=== PATIENT | male | born 1950 | race Caucasian/White ===

== ENCOUNTER 2017-10-15 05:20 | Inpatient (IN) ==
[2017-10-15] MEDS ORDERED: CEFAZOLIN 1 G INJECTION IVP ONE (05:48)
[2017-10-15 05:51] VITALS: BMI 31.4
[2017-10-15] MEDS ORDERED: METOCLOPRAMIDE 10mg/2ml INJECTION IVP ONE (06:00)
[2017-10-15] MEDS ORDERED: ACETAMINOPHEN 500 MG TABLET PO ONE (06:00)
[2017-10-15] MEDS ORDERED: DEXAMETHASONE 4 MG/ML INJECTION IVP ONE (06:00)
[2017-10-15] MEDS ORDERED: ONDANSETRON 4 MG/2 ML INJECTION IVP ONE (06:00)
[2017-10-15] MEDS ORDERED: TRANEXAMIC ACID 1,000 MG in NS 100 ML IV ONE ×2 (06:00→07:00)
[2017-10-15] MEDS ORDERED: FAMOTIDINE PB 20 MG/50 ML BAG IV ONE (06:00)
[2017-10-15] MEDS ORDERED: LIDOCAINE 1% (10mg/ml) 2mL INJ PF SDV ID ONE (06:00)
[2017-10-15] MEDS ORDERED: MELOXICAM 15 MG TABLET PO ONE (06:00)
[2017-10-15] MEDS: LR 1,000 ML IV SCH ×2 (06:16→08:18)
[2017-10-15] MEDS ORDERED: NOZIN NASAL SWAB NAS ONE ×2 (06:55→10:22)
[2017-10-15] MEDS ORDERED: VANCOMYCIN 1,000 MG INJECTION ONE (06:57)
[2017-10-15] MEDS ORDERED: MIDAZOLAM 2mg/2ml INJECTION ONE (07:05)
[2017-10-15] MEDS ORDERED: FentaNYL 100 MCG/2 ML INJECTION ONE (07:13)
[2017-10-15] MEDS ORDERED: BUPIVACAINE 0.25% (2.5mg/ml) PF 30ml INJECTION ONE (07:27)
[2017-10-15] MEDS ORDERED: EPINEPHrine PF 0.25 MG, BUPIVACAINE 0.25% PF 30 ML, MORPHINE SULFATE 15 MG, KETOROLAC I... OPSITE ONE (08:00)
[2017-10-15] MEDS ORDERED: KETAMINE 500 MG/10 ML INJECTION ONE (08:09)
[2017-10-15] MEDS ORDERED: VANCOMYCIN 1,000 MG INJECTION IAR ONE (08:34)
--- NOTE | 2017-10-15 09:22 | Operative Note ---
- Procedure Preoperative Diagnosis: Right hip primary degenerative joint disease Postoperative Diagnosis: Same as preoperative diagnosis. Surgeon: Boston Gordon MD Diamond Sizer And Sorter: Wade Stuart Complications: None. Anesthesia: Spinal. Estimated Blood Loss: See Anesthesia Record. Fluids: Please see Anesthesia Record. Description of Procedure: Mr Huggins and his right hip were identified and marked in the preoperative holding area. He was brought back to the operating suite and spinal anesthetic was administered. He was then placed in a lateral decubitus position with his right hip up. The right lower extremity was prepped and draped in my normal sterile fashion. Timeout was performed. The [employer] robotic arm was used to assist with the surgery. A pelvic array was placed into the iliac crest through three 1 cm incisions. A direct superior approach was utilized. An approximately 15 cm incision was made in the skin and dissection carried down to the muscle fascia which was then split in line with skin incision. A checkpoint was placed in the greater trochanter. The short external rotators were identified and tagged and detached. A capsulotomy was performed and the hip dislocated. A femoral neck osteotomy was performed at the pre-templated level measuring down from the femoral head. The head was removed and acetabulum exposed. Labrum was removed. It'll large inferior osteophyte. The acetabulum was then registered with the robot. The robotic arm was then used to ream with a 55 reamer. The large inferior ossified was then removed. The robot then was again used to place a 56 Trident cup in 40 of tilt and 22 of anteversion. A liner was then placed. The proximal femur was exposed and prepared with a cookie cutter followed by reaming and broaching to a size 5. We trialed with a 0 head. After thorough irrigation a final Accolade 2 size 5 stem with 127 neck was placed. Leg length and offset were checked with the robot and were good. According to the robot he was 1 mm longer than the opposite hip. A final ceramic standard head was placed and the hip reduced. Betadine solution was used to irrigate throughout the case. It was followed by normal saline irrigation. Joint cocktail was injected throughout soft tissue. The capsulotomy was repaired with Ethibond. Short external rotators were also repaired with Ethibond. 1 g of vancomycin powder was placed into the wound. The muscle fascia was then repaired with #1 Vicryl. I then left my blood donor unit assistant to close the subcutaneous tissue with 2-0 Vicryl followed by running 4-0 Monocryl skin followed by Dermabond and a sterile dressing. The patient with any placed back into supine position and taken to recovery room in the care of anesthesia.
[2017-10-15] MEDS ORDERED: PHENYLEPHRINE INJ 10 MG/ML VIAL IV ONE (09:28)
--- NOTE | 2017-10-15 09:56 | Anesthesia Postoperative Note ---
- Date and Time Date: 10/15/17 Time: 09:56 - Status Patient Participated in Evaluation: Patient Participated in Person Vital Signs: Temperature 97.5 F 10/15/17 09:40 Pulse Rate 72 10/15/17 09:50 Respiratory Rate 15 10/15/17 09:50 Blood Pressure 109/67 10/15/17 09:50 Pulse Oximetry 95 10/15/17 09:50 Respiratory Function: Airway Patent, Regular Respirations Cardiovascular Function: Regular Pulse EKG: Sinus Rhythm Pain Intensity: 0 (spinal intact) Hydration: IV Infusing Complications During Recover: None Apparent - Follow-Up Instructions Instructions: Per Surgeon
--- NOTE | 2017-10-15 09:57 | Anesthesia Preoperative Report ---
Anesthesia Preoperative Record - Date and Time Date: 10/15/17 Preoperative Diagnosis: RT RIANNA M16.11 NPO Since Date: 10/14/17 NPO Since Time: 21:00 Allergies/Adverse Reactions: Allergies Allergy/AdvReac Type Severity Reaction Status Date / Time Penicillins Allergy Unknown Verified 10/15/17 06:59 - Vital Signs Vital Signs: Temperature 98.0 F 10/15/17 05:40 Pulse Rate 88 10/15/17 05:40 Respiratory Rate 18 10/15/17 05:40 Blood Pressure 135/91 H 10/15/17 05:40 Pulse Oximetry 95 10/15/17 05:40 Height and Weight: Height 1.78 m Weight 99.5 kg Body Mass Index 31.4 - Medications Inpatient Medications: Current Medications Tranexamic Acid 1,000 mg/ (Sodium Chloride) 110 mls @ 660 mls/hr IV INTRAOP ONE Stop: 10/15/17 07:09 Epinephrine HCl 0.25 mg/Bupivacaine HCl 30 ml/Morphine Sulfate 15 mg/Ketorolac Tromethamine 60 mg/Sodium Chloride 65.25 mls @ 0 mls/hr OPSITE INTRAOP ONE; Per Protocol PRN Reason: Protocol Stop: 10/15/17 08:01 Lactated Ringer's (Lactated Ringers) 1,000 mls @ 50 mls/hr IV .Q20H TOM Last Admin: 10/15/17 06:16 Dose: 50 mls/hr Sodium Chloride (Iv Flush) 10 - 80 ml IV PRN PRN PRN Reason: Flushing Home Medications: Home Medications Medication Instructions Recorded Confirmed Type Prilosec (Omeprazole) 20 mg 20 mg PO .QD cap 05/15/17 10/15/17 History capsule,delayed release aspirin 81 mg tablet,delayed 81 mg PO DAILY tab 05/15/17 10/07/17 History release kvcdsoqd-esg-gqxsv acid 0.4 1 tab PO QAM 05/15/17 10/15/17 History mg-lycopene 300 mcg-lutein 250 mcg tablet Acetaminophen [Tylenol] 2 tab PO BID 10/07/17 10/15/17 History Is Patient on Beta Yris?: No - Medical History Respiratory: Reports: Asthma (as a child-exercise induced) DENIES: Bronchitis, Chronic Obstructive Pulmonary Disease (COPD), Dyspnea, Orthopnea, Pulmonary Embolism, Pneumonia, Upper Respiratory Infection, Pulmonary Edema, Sleep Apnea, Tuberculosis, Other Cardiovascular: Reports: Heart Murmur (grade 2), Hypertension, High Cholesterol DENIES: Abnormal EKG, Angina, Arrhythmia, Congestive Heart Failure, Coronary Artery Disease, Hypotension, Myocardial Infarction, Rheumatic Fever, Valvular Heart Disease, Other Gastrointestional: Reports: Gastroesophageal Reflux Disease (controlled), Other (umblical hernia) DENIES: Obstructive Bowel, Hepatitis, Cirrhosis, Nausea or Vomiting Present, Gastrointestinal Bleeding, Hiatal Hernia, Ulcer, Morbid Obesity Neuro/Musculoskeletal: Reports: HX.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; lt knee), Other (numbness on lt side of rt foot) Denies: Back Problems, Cerebrovascular Accident, Depression, Headaches, Loss of Consciousness, Muscle Weakness, Neuromuscular Disorder, Paralysis, Paresthesia, Syncope, Seizures Renal/Endocrine: Reports: Weight Loss DENIES: Diabetes Mellitus Type 1, Diabetes Mellitus Type 2, Renal Failure, Dialysis, Thyroid Disease, Weight Gain, Other - Surgical History HEENT Surgeries: Reports: Tonsillectomy, Other (wears glasses) GI Surgery/Treatments: Reports: Colonoscopy (polyp) Reproductive Surgery/Treatment: Reports: Vasectomy Anesthesia Reactions: None Hx Family Anesthesia Reaction: No History of Motion Sickness: No - Social History Smoking Status: Former smoker Hx Chewing Tobacco Use: No Second Hand Exposure: Yes Substance Use Type: does not use Alcohol Intake: never Alcohol Intake Frequency: does not drink - Pertinent Findings Laboratory: CBC and BMP 10/15/17 05:55 BMP 10/15/17 05:55 Sodium 145 H Potassium 3.4 L Chloride 103 Carbon Dioxide 30 BUN 20.0 Creatinine 0.9 Glucose 106 Calcium 9.6 EKG: Sinus Rhythm - Physical Exam Respiratory Exam: Present: lungs clear Cardiovascular Exam: Present: systolic murmur - Airway Assessment Mallampati Score: I TMD: 2 Fingerbreadths Neck Extension: good Overall Assessment: no airway concerns - ASA ASA Score: 2 - Plan Anesthesia: Neuroaxial Regional/Trunk Block: Spinal - Discussion Discussion: Discussed risks/options/alternatives of anesthesia and questions answered. Patient consents. Nursing pain assessment noted. Attestation Statement: Prior to the delivery of any anesthetic medication, I examined the patient, developed the plan, obtained the patient's consent and discussed the risk and benefits of the procedure with the patient/guardian. - Additional Information Seen by Anesthesia: Yes
[2017-10-15] MEDS ORDERED: DiphenhydrAMINE 25 MG CAPSULE PO PRN (10:22)
[2017-10-15] MEDS ORDERED: Oxycodone *IR* 5 MG TABLET PO PRN (10:22)
[2017-10-15] MEDS ORDERED: DiphenhydrAMINE 50 MG/ML INJECTION IVP PRN (10:22)
[2017-10-15] MEDS ORDERED: ONDANSETRON 4 MG/2 ML INJECTION IVP PRN (10:22)
[2017-10-15] MEDS ORDERED: LORazepam 1 MG TABLET PO PRN (10:22)
[2017-10-15] MEDS ORDERED: NAPROXEN 220 MG TABLET PO PRN (10:22)
[2017-10-15] MEDS: NS 1,000 ML IV SCH (10:27)
--- NOTE | 2017-10-15 10:48 | XRay Report ---
Indication: postoperative image PROCEDURE: XR pelvis w/ 1 view RT hip: Encounter: Initial Comparison: None Findings: Postoperative changes of right total hip replacement are seen. There is expected postoperative subcutaneous gas. No evidence of hardware failure or acute fracture. No retained radiopaque surgical instruments or sponges seen. Impression: New right total hip prosthesis without evidence of immediate complication. .
[2017-10-15] MEDS ORDERED: SALINE FLUSH 10ml SYRINGE IV PRN (12:32)
[2017-10-15] MEDS: NOZIN NASAL SWAB NAS SCH ×3 (12:59→21:02)
[2017-10-15] MEDS: ACETAMINOPHEN 325 MG TABLET PO SCH ×3 (13:00→20:54)
[2017-10-15] MEDS: CEFAZOLIN 2 G in NS 100 ML IV SCH ×2 (15:29→22:55)
[2017-10-15] MEDS: DEXAMETHASONE 20 MG/5 ML INJECTION IVP SCH ×2 (15:30→22:56)
[2017-10-15] MEDS: ASPIRIN *EC* 81 MG TABLET PO SCH (20:52)
[2017-10-15] MEDS: DOCUSATE SODIUM 100 MG CAPSULE PO SCH (20:54)
[2017-10-15] MEDS ORDERED: SENNOSIDES 8.6 MG TABLET PO SCH (21:00)
[2017-10-16] MEDS: NS 1,000 ML IV SCH (01:07)
[2017-10-16] MEDS: NOZIN NASAL SWAB NAS SCH (05:44)
[2017-10-16] MEDS ORDERED: OMEPRAZOLE 20 MG CAPSULE PO SCH (06:30)
--- NOTE | 2017-10-16 08:09 | Orthopedic Progress Note ---
Date: Date: 10/16/17 Time: 804 Subjective/Severity of Illness: Domenic is up with OT getting dressed. He has been mobile with good tolerance. Pain levels are a "0" at this time. He has only taken one pain pill so far. Denies feeling SOA or having a cough. O2 sats decreased into the upper 80's last night. Discussed getting a sleep study with his PCP after discharge. Pt has no concerns or complaints at this time. Orthopedic Objective PO Vital signs: Temperature 96.9 F 10/16/17 04:00 Pulse Rate 76 10/16/17 04:00 Respiratory Rate 16 10/16/17 04:00 Blood Pressure 114/73 10/16/17 04:00 Pulse Oximetry 97 10/16/17 04:00 Height and Weight: Height 5 ft 10 in Weight 219 lb 5.759 oz Body Mass Index 31.4 - Constitutional General Appearance: Present: alert, cooperative, no acute distress - Respiratory Exam Present: non-labored - Surgical Site Incision: Mepilex dressing intact, dressing intact, no drainage - Neurological Exam Present: no deficits - Psychiatric Exam Present: alert, normal affect - Labs Result Diagrams: 10/16/17 03:59 10/16/17 03:59 Abnormal lab results 10/16/17 10/16/17 Range/Units 03:59 03:59 Hgb 12.3 L (13.5-17.5) GM/DL Hct 37.2 L (41-53) % BUN 25.0 H (9-20) MG/DL Glucose 153 H (75-110) MG/DL H & H 10/16/17 Range/Units 03:59 Hgb 12.3 L (13.5-17.5) GM/DL Hct 37.2 L (41-53) % Orthopedic Assessment and Plan (1) Primary osteoarthritis of right hip Status: Acute Assessment and Plan: Current anti-coagulation protocol for VTE prophylaxis. SCD's for added coverage. Discussed getting sleep study as an outpatient due to drop in sats overnight. PT/OT services to improve independent function. Discharge Planning per Case Management. - Anticoagulation Therapy Anticoagulation: ASA 81 mg PO BID x6 weeks Hospital Course Summary Disclaimer: The visit summary below is not to be considered part of the above Progress Note.
[2017-10-16 08:43] VITALS: TEMP 98.8; O2SAT 96
[2017-10-16] MEDS ORDERED: ALLOPURINOL 100 MG TABLET PO SCH (09:00)
[2017-10-16] MEDS ORDERED: POLYETHYL GLYCOL 3350 17gm PACKET PO SCH (09:00)
[2017-10-16] MEDS ORDERED: SIMVASTATIN 80 MG PO SCH (09:00)
[2017-10-16] MEDS ORDERED: SIMVASTATIN 40 MG TABLET PO SCH (09:00)
[2017-10-16] MEDS ORDERED: LISINOPRIL/HCTZ 20/25 MG TABLET PO SCH (09:00)
[2017-10-16] MEDS ORDERED: INFLUENZA VAC High Dose 2017-18 (Fluzone HD*) (>=65yo) 0.5ml IM ONE (09:00)
[2017-10-16] MEDS: ASPIRIN *EC* 81 MG TABLET PO SCH (09:27)
[2017-10-16] MEDS: DOCUSATE SODIUM 100 MG CAPSULE PO SCH (09:28)
[2017-10-16] MEDS: ACETAMINOPHEN 325 MG TABLET PO SCH (09:28)
[2017-10-16] MEDS ORDERED: INFLUENZA VAC. INJ. ADMIN CHARGE INJ ONE (09:30)
[2017-10-16] MEDS ORDERED: SENNOSIDES 8.6 MG TABLET PO PRN (09:32)
[2017-10-16 12:35] VITALS: BP 113/71; PULSE 79; RESP 18
--- NOTE | 2017-10-16 12:46 | Discharge Summary ---
Orthopedic Discharge Info Date of admission: 10/15/17 05:20 Primary care physician: Jeffrey Mcarthur DO Attending Physician: Hernandez Gordon MD Consults: 10/15/17 05:31 Consult to Anesthesiology [CONS] Routine Reason For Exam: Preoperative Assessment 10/15/17 10:22 Case Management Consult [CONS] Routine Reason For Exam: Discharge Planning DME-Walker [CONS] Routine Height: 5 ft 10 in Weight: 219 lb 5.759 oz Total Joint Outpatient Therapy [CONS] Routine Comment: Remove dressing in 2 weeks 10/16/17 05:15 Case Management Consult [CONS] Routine Reason For Exam: noc ox study - Discharge Diagnosis (1) Primary osteoarthritis of right hip Status: Acute - Procedures Procedures: Right RIANNA - Laboratory Result Diagrams: 10/16/17 03:59 10/16/17 03:59 Laboratory: Abnormal lab results 10/16/17 10/16/17 Range/Units 03:59 03:59 Hgb 12.3 L (13.5-17.5) GM/DL Hct 37.2 L (41-53) % BUN 25.0 H (9-20) MG/DL Glucose 153 H (75-110) MG/DL H & H 10/16/17 Range/Units 03:59 Hgb 12.3 L (13.5-17.5) GM/DL Hct 37.2 L (41-53) % Orthopedic Discharge HPI - HPI Comments This patient was admitted for elective surgical tx of end stage degenerative joint disease that failed to respond to conservative treatment. Further details of this is found in the admission H&P. Orthopedic Hospital Course Hospital course: 10/16/17 12:43 After appropriate preoperative clearance and signing of operative consent, the patient was given IV antibiotics, according to orthopedic protocol. The patient was taken to the operating room and underwent elective joint arthroplasty. Following surgery, antibiotics were discontinued less than 24 hours according to joint protocol. Appropriate anticoagulants were initiated and SCDs added for DVT prevention. The dressing was clean, dry, and intact. Pain control was obtained via multimodal approach. Bowel motivation addressed with scheduled and PRN medications. Early mobilization was initiated through PT services. Discharge arrangements made by a collaborative effort between the patient and Case Management. Follow-up is scheduled in 2-3 weeks. Discharge instructions given by orthopedic providers and nursing staff at discharge. Discharge condition was good. Ongoing care required?: No Discharge Plan - Med Rec/Dispo Referrals/Follow Up: Hernandez Gordon MD [Physician] - 11/06/17 2:45 pm Azeb Instructions: [facility] [place] Ortho Postop Instructions Additional Instructions: [facility] ON 10/18/2017 AT 9:40AM FOR PHYSICAL THERAPY EVAL. PHONE [phone] Prescriptions: New Naproxen [Aleve] 440 mg PO BID PRN #60 tab PRN Reason: Pain PEG 3350 17gm PACKET [Miralax] 17 gm PO DAILY packet Aspirin *EC* [Ecotrin] 81 mg PO BID #84 tab Oxycodone *IR* [Roxicodone *Ir*] 5 - 15 mg PO Q3H PRN #30 tab PRN Reason: Breakthrough Pain Continue Acetaminophen [Tylenol] 2 tab PO BID Zocor (simvastatin) 80 mg tablet 80 mg PO QAM #30 tab Prilosec (Omeprazole) 20 mg capsule,delayed release 20 mg PO .QD cap kzeidfni-fmd-vjlec acid 0.4 mg-lycopene 300 mcg-lutein 250 mcg tablet 1 tab PO QAM Zyloprim (Allopurinol) 100 mg tablet 100 mg PO DAILY #90 tab Zestoretic (lisinopril 20 mg-hydrochlorothiazide 25 mg) tablet 1 tab PO DAILY #30 tab Discontinued aspirin 81 mg tablet,delayed release 81 mg PO DAILY tab - Disposition 01 Discharged Home, Self-Care - Dismissal Complete Discharge Instructions are:: Complete
[2017-10-17] MEDS ORDERED: BISACODYL 10 MG SUPPOSITORY RECTALLY SCH (20:00)
== END 2017-10-16 14:29 | disposition home or self-care (01) | DRG 470 ==
LOC: SRG 05:20
PROVIDERS: ADMIT Orthopaedic Surgery; ATTEND Orthopaedic Surgery